=== PATIENT | female | born 1930 | race African-American/Black ===

== ENCOUNTER 2016-09-10 08:28 | Outpatient (CLI) | payer MEDICARE | END 2016-09-10 08:29 | disposition home or self-care (01) | LOC: NAVSJIPCSP 08:28 | PROVIDERS: ATTEND Internal Medicine | DX: E78.5 Hyperlipidemia, unspecified (principal) | CPT/HCPCS: 36415; 80061 ==

== ENCOUNTER 2016-12-20 08:38 | Outpatient (CLI) | payer MEDICARE ==
[2016-12-20 12:15] LABS: Cardiac Risk 3.1 (Less than 4.5)
== END 2016-12-20 08:39 | disposition home or self-care (01) ==
LOC: NAVSJIPCSP 08:38
PROVIDERS: ATTEND Internal Medicine
DX: E78.5 Hyperlipidemia, unspecified (principal); Z79.899 Other long term (current) drug therapy
CPT/HCPCS: 36415; 80061

== ENCOUNTER 2017-09-13 10:08 | Emergency (ER) | payer MEDICARE | END 2017-09-13 10:46 | disposition home or self-care (01) | LOC: NAV ERS 10:08 | DX: S46.812A Strain of other muscles, fascia and tendons at shoulder and upper arm level, left arm, initial encounter (principal); S76.011A Strain of muscle, fascia and tendon of right hip, initial encounter; I10 Essential (primary) hypertension; M19.90 Unspecified osteoarthritis, unspecified site; Z79.899 Other long term (current) drug therapy; X58.XXXA Exposure to other specified factors, initial encounter | CPT/HCPCS: 99283 ==